=== PATIENT | female | born 1955 | race Caucasian/White ===

== ENCOUNTER 2016-03-07 14:25 | Inpatient (IN) | payer MEDICARE, BC ==
[~2016-03-07] VITALS: Ht 157.5 cm; Wt 61.9 kg
[~2016-03-07 14:25] MED LIST: BACITRACIN 50,000 UNITS INJ IRRIG ONE; KETAMINE INJ 50 MG/ML VIAL IV ONE; LIDOCAINE 1% 20ML NERVEBLOCK ONE; MIDAZOLAM 2 MG/2 ML INJ IV ONE; PROPOFOL 50ML PER ML IV ONE; hePARIN 1,000 UNITS/ML (PORCINE) 10 ML IV ONE
[2016-03-07] MEDS ORDERED: ACETAMINOPHEN 325 MG TAB PO PRN ×2 (15:10→17:40)
[2016-03-07] MEDS ORDERED: ONDANSETRON 4 MG VIAL IV PUSH PRN ×2 (15:10→17:40)
[2016-03-07 17:18] VITALS: BP_SYST 103; RESP 16; TEMP 98.3
[2016-03-07] MEDS ORDERED: ONDANSETRON 4 MG VIAL IV PRN (17:20)
[2016-03-07] MEDS ORDERED: GLUCAGON 1 MG VIAL IM PRN (17:20)
[2016-03-07] MEDS ORDERED: SODIUM CHLORIDE 0.9% 1,000 ML IV PRN (17:20)
[2016-03-07] MEDS ORDERED: ALBUMIN HUMAN 25GM (25%) 100 ML IV PRN (17:20)
[2016-03-07] MEDS ORDERED: SODIUM CHLORIDE 0.9% 1,000 ML IV SCH ×2 (17:20)
[2016-03-07] MEDS ORDERED: DEXTROSE 50% SYRINGE 50 ML IV PRN (17:20)
[2016-03-07] MEDS ORDERED: KCL CR 10 MEQ CAP PO ONE (17:45)
[2016-03-07] MEDS ORDERED: CEFAZOLIN 2,000 MG in SODIUM CHLORIDE 0.9% 100 ML IV ONE (18:30)
[2016-03-07] MEDS: SODIUM CHLOR 0.9% IV SCH (18:40)
[2016-03-07] MEDS: KCL 40 MEQ IV SCH (18:40)
[2016-03-07] MEDS: METOCLOPRAMIDE 10 MG/2 ML VIAL IV PUSH SCH (18:41)
[2016-03-07 18:49] VITALS: BMI 30.5
[2016-03-07 19:42] VITALS: BP_SYST 84; RESP 20; TEMP 97.9
[2016-03-08] VITALS (36 sets, daily range): BP systolic 88–149; RESP 12–41; TEMP 96.8–98.6
[2016-03-08] MEDS: METOCLOPRAMIDE 10 MG/2 ML VIAL IV PUSH SCH ×3 (06:38→17:51)
[2016-03-08] MEDS ORDERED: CEFAZOLIN 2,000 MG in SODIUM CHLORIDE 0.9% 100 ML IV ONE (08:25)
[2016-03-08] MEDS ORDERED: MORPHINE 2 MG/ML SYR IV PRN (11:10)
[2016-03-08] MEDS ORDERED: MORPHINE 4 MG/ML SYR IV PRN (11:10)
[2016-03-08] MEDS ORDERED: ONDANSETRON 4 MG VIAL IV PRN (11:10)
[2016-03-08] MEDS ORDERED: DILAUDID 1 MG/ML AMP IV PRN (11:10)
[2016-03-08] MEDS ORDERED: OXYCODONE 5 MG TAB PO PRN (11:10)
[2016-03-08] MEDS ORDERED: MEPERIDINE 25 MG/ML IV PRN (11:10)
[2016-03-08] MEDS ORDERED: DEXTROSE 50% SYRINGE 50 ML IV ONE (13:00)
[2016-03-08] MEDS: SODIUM CHLOR 0.9% IV SCH (13:55)
[2016-03-08] MEDS: KCL 40 MEQ IV SCH (13:55)
[2016-03-08] MEDS: VANCOMYCIN SUSP 250 MG/5 ML UDC PO SCH (20:58)
[2016-03-08] MEDS ORDERED: hePARIN 1,000 UNITS/ML (PORCINE) 10 ML ONE (21:47)
[2016-03-09] VITALS (7 sets, daily range): BP systolic 100–110; RESP 16–91; TEMP 97.4–99.2; Ht 157.5 cm; Wt 61.9 kg
[2016-03-09] MEDS: METOCLOPRAMIDE 10 MG/2 ML VIAL IV PUSH SCH ×3 (06:05→16:23)
[2016-03-09] MEDS ORDERED: MISSING DOSE XX ONE ×2 (09:10→20:30)
[2016-03-09] MEDS: VANCOMYCIN SUSP 250 MG/5 ML UDC PO SCH ×3 (10:11→20:46)
[2016-03-09] MEDS: MICONAZOLE 2% PWD TOPICAL SCH ×2 (12:57→20:46)
[2016-03-10] VITALS (8 sets, daily range): BP systolic 116–149; RESP 16–18; TEMP 97.5–98.3
[2016-03-10] MEDS: METOCLOPRAMIDE 10 MG/2 ML VIAL IV PUSH SCH ×3 (06:09→16:00)
[2016-03-10] MEDS: MICONAZOLE 2% PWD TOPICAL SCH ×2 (08:19→20:48)
[2016-03-10] MEDS: VANCOMYCIN SUSP 250 MG/5 ML UDC PO SCH ×3 (08:20→20:47)
[2016-03-11 02:44] VITALS: BP_SYST 132; RESP 16; TEMP 97.7
[2016-03-11] MEDS: METOCLOPRAMIDE 10 MG/2 ML VIAL IV PUSH SCH ×3 (05:58→16:43)
[2016-03-11 07:24] VITALS: BP_SYST 122; RESP 16; TEMP 97.8
[2016-03-11] MEDS: MICONAZOLE 2% PWD TOPICAL SCH ×2 (10:02→21:50)
[2016-03-11] MEDS: VANCOMYCIN SUSP 250 MG/5 ML UDC PO SCH ×3 (10:02→21:48)
[2016-03-11 11:19] VITALS: BP_SYST 106; RESP 16; TEMP 98.5
[2016-03-11 15:16] VITALS: BP_SYST 128; RESP 16; TEMP 98.9
[2016-03-11 19:37] VITALS: BP_SYST 140; RESP 16; TEMP 98.2
[2016-03-12] VITALS (7 sets, daily range): BP systolic 100–140; RESP 16; TEMP 97.4–98.1
[2016-03-12] MEDS: METOCLOPRAMIDE 10 MG/2 ML VIAL IV PUSH SCH ×3 (05:54→15:54)
[2016-03-12] MEDS: MICONAZOLE 2% PWD TOPICAL SCH ×2 (08:43→20:05)
[2016-03-12] MEDS: VANCOMYCIN SUSP 250 MG/5 ML UDC PO SCH ×3 (08:43→20:05)
[2016-03-13] VITALS (11 sets, daily range): BP systolic 92–160; RESP 16–20; TEMP 97.1–98.4
[2016-03-13] MEDS: METOCLOPRAMIDE 10 MG/2 ML VIAL IV PUSH SCH ×3 (06:52→15:57)
[2016-03-13] MEDS: MICONAZOLE 2% PWD TOPICAL SCH ×2 (08:21→20:59)
[2016-03-13] MEDS: VANCOMYCIN SUSP 250 MG/5 ML UDC PO SCH ×3 (08:21→21:20)
[2016-03-13] MEDS ORDERED: VISIPAQUE IV ONE (20:36)
[2016-03-13] MEDS ORDERED: BUPIVACAINE 0.5% PF 10ML ONE (21:08)
[2016-03-13] MEDS ORDERED: LIDOCAINE 1% 20ML ONE (21:08)
[2016-03-13] MEDS ORDERED: FENTANYL 100 MCG/2 ML AMP ONE (22:00)
[2016-03-13] MEDS ORDERED: MIDAZOLAM 2 MG/2 ML INJ ONE (22:00)
[2016-03-14] VITALS (8 sets, daily range): BP systolic 96–146; RESP 16–20; TEMP 97.9–99.2
[2016-03-14] MEDS: METOCLOPRAMIDE 10 MG/2 ML VIAL IV PUSH SCH ×3 (06:11→16:00)
[2016-03-14] MEDS: MICONAZOLE 2% PWD TOPICAL SCH (08:52)
[2016-03-14] MEDS: VANCOMYCIN SUSP 250 MG/5 ML UDC PO SCH ×2 (08:52→16:00)
== END 2016-03-14 17:03 | DRG 981 ==
LOC: ENRESERVDT → ENRESERVTM → ER 14:25 → EMR 15:30 → ENPENDDIS 15:30 → PCU2 17:10 → 4THE 03-09 16:52
PROVIDERS: ADMIT Internal Medicine Nephrology; ATTEND Internal Medicine Nephrology
PROC: 0WPG0JZ Removal of Synthetic Substitute from Peritoneal Cavity, Open Approach (ICD-10-PCS; 2016-03-08)
PROC: B543ZZA Ultrasonography of Right Jugular Veins, Guidance (ICD-10-PCS; 2016-03-08)
PROC: 5A1D60Z (ICD-10-PCS; 2016-03-08)
PROC: 05HM33Z Insertion of Infusion Device into Right Internal Jugular Vein, Percutaneous Approach (ICD-10-PCS; principal; 2016-03-08 10:41)
PROC: B41DZZZ Fluoroscopy of Aorta and Bilateral Lower Extremity Arteries (ICD-10-PCS; 2016-03-13)
PROC: B31HZZZ Fluoroscopy of Right Upper Extremity Arteries (ICD-10-PCS; 2016-03-13)
CPT/HCPCS: 36221; 36415; 71010; 75710; 75716; 77001; 80053; 82947; 85025; 85347; 86704; 86706; 87340; 87493